=== PATIENT | male | born 1980 | race Hispanic/Latino ===

== ENCOUNTER 2021-12-20 09:39 | Emergency (ER) | payer SELFPAY ==
[~2021-12-20] VITALS: Ht 188 cm; Wt 113.4 kg
[2021-12-20] MEDS ORDERED: DOXYCYCLINE HY100 MG PO (10:09)
[2021-12-20] MEDS ORDERED: LIDOCAINE 1% W/EPINEPHRINE 20 ML VIAL INJ ONE (10:15)
== END 2021-12-20 11:04 | disposition home or self-care (01) ==
LOC: ER 09:41
DX: L02.416 Cutaneous abscess of left lower limb (principal); E11.65 Type 2 diabetes mellitus with hyperglycemia
CPT/HCPCS: 99283